=== PATIENT | male | born 1970 | race Caucasian/White ===

== ENCOUNTER 2024-07-14 00:14 | Emergency (ER) | payer OTHER, MEDICAID ==
[~2024-07-14] VITALS: Ht 157.5 cm; Wt 73.0 kg
[2024-07-14 00:38] VITALS: O2SAT 98
[2024-07-14] MEDS: ONDANSETRON 4MG ODT PO ONE (02:15)
[2024-07-14] MEDS: ACETAMINOPHEN 325MG TABLET PO ONE (02:15)
[2024-07-14] MEDS: MORPHINE SULFATE 4 MG/ML INJ (FOR IV/IM USE) IV ONE (03:15)
[2024-07-14 03:29] LABS: BASOPHILS % 0.3 % (0.0-2.0); EOSINOPHILS % 0.2 % (0.0-5.0); HEMATOCRIT. 44.7 % (42.0-52.0); HEMOGLOBIN. 14.8 g/dL (14.0-18.0); LYMPHOCYTES % 8.4 % (20.0-50.0); MEAN CORPUSCULAR VOLUME 87.9 fL (80.0-94.0); MEAN PLATELET VOLUME 7.3 fl (7.4-10.4); MONOCYTES % 5.8 % (2.0-8.0); NEUTROPHILS % 85.3 % (40.0-76.0); PLATELET 245 x1000/uL (130-400); RED BLOOD CELL COUNT 5.09 mill/uL (4.7-6.1); RED CELL DISTRIBUTION WIDTH 13.7 % (11.6-14.6); WHITE BLOOD COUNT 9.9 x1000/uL (4.5-11.0)
[2024-07-14 04:15] LABS: CARBON DIOXIDE 27 mEq/L (21-32)
[2024-07-14] MEDS: TETANUS, DIPHTHERIA, PERTUSSIS VAC/PF 0.5ML (>10YR OLD) IM ONE (04:15)
[2024-07-14 04:16] LABS: CALCIUM 9.2 mg/dL (8.7-10.4)
[2024-07-14 04:21] LABS: CREATININE 1.1 mg/dL (0.6-1.3); GLUCOSE 117 mg/dL (70-105); UREA NITROGEN BLOOD 18 mg/dL (9-23)
[2024-07-14 05:28] LABS: CHLORIDE 105 mEq/L (98-107); POTASSIUM 4.1 mEq/L (3.5-5.1); SODIUM 138 mEq/L (136-145)
[2024-07-14] MEDS: AMPICILLIN SOD/SULBACTAM NA 3 G in SODIUM CHLORIDE 0.9% 100 ML IV SCH (05:50)
[2024-07-14 07:09] VITALS: BP 135/89; PULSE 74; RESP 17; TEMP 36.66960; O2SAT 100
[2024-07-15] MEDS ORDERED: IOHEXOL-300 100 ML BOTTLE ONE (04:48)
== END 2024-07-14 07:30 | disposition short-term general hospital (02) ==
LOC: ER 00:14 → CANBEDREQ 07:28 → ER 07:30
DX: S02.32XA Fracture of orbital floor, left side, initial encounter for closed fracture (principal); S01.81XA Laceration without foreign body of other part of head, initial encounter; M54.2 Cervicalgia; I10 Essential (primary) hypertension; Z88.2 Allergy status to sulfonamides; Y08.89XA Assault by other specified means, initial encounter; Y93.89 Activity, other specified; Y92.89 Other specified places as the place of occurrence of the external cause; Y99.8 Other external cause status
CPT/HCPCS: 80048; 85025; 36415; 70450; 70486; 72125; 12011; 96365; 99285; Q0162; J0295; J7050; Z7610 ×4; J2270; Q9967